=== PATIENT | female | born 1950 | race Asian ===

== ENCOUNTER 2019-01-18 17:54 | Emergency (ER) | payer MEDICARE, OTHER ==
[~2019-01-18] VITALS: Ht 172.7 cm; Wt 86.4 kg
[2019-01-18] MEDS ORDERED: SITA50 PO (18:08)
[2019-01-18] MEDS ORDERED: ACET-2247 PO (18:08)
[2019-01-18] MEDS ORDERED: OS500 PO (18:08)
[2019-01-18] MEDS ORDERED: ATOR20TA86 PO (18:08)
[2019-01-18] MEDS ORDERED: LEVO125 PO (18:08)
[2019-01-18] MEDS ORDERED: IBUP-2071 PO (18:08)
[2019-01-18] MEDS ORDERED: TELM20 PO (18:08)
[2019-01-18 18:16] LABS: GLUCOSE,POINT OF CARE 110 MG/DL (70-110)
[2019-01-18] MEDS ORDERED: IBUPROFEN 800 MG TABLET PO ONE (19:15)
[2019-01-18 20:36] VITALS: BP 133/68
== END 2019-01-18 20:30 | disposition home or self-care (01) ==
LOC: EMS 17:56
DX: S83.92XA Sprain of unspecified site of left knee, initial encounter (principal); I10 Essential (primary) hypertension; E11.9 Type 2 diabetes mellitus without complications; E78.00 Pure hypercholesterolemia, unspecified; E03.9 Hypothyroidism, unspecified; Z91.040 Latex allergy status; Z79.899 Other long term (current) drug therapy; Z96.652 Presence of left artificial knee joint; X50.9XXA Other and unspecified overexertion or strenuous movements or postures, initial encounter; Y93.89 Activity, other specified; Y92.89 Other specified places as the place of occurrence of the external cause; Y99.8 Other external cause status
CPT/HCPCS: 29505